=== PATIENT | female | born 2000 | race Caucasian/White ===

== ENCOUNTER 2024-03-03 19:15 | Emergency (ER) | payer OTHER ==
[2024-03-03] MEDS: Ondansetron 4 MG Tab.DIS PO ONE (19:57)
[2024-03-03] MEDS: Acetaminophen 500 MG Tab PO ONE (19:57)
[2024-03-03 20:22] LABS: CORONAVIRUS COVID-19 NAA NEGATIVE (NEGATIVE); INFLUENZA A NAA NEGATIVE (NEGATIVE); INFLUENZA B NAA POSITIVE (NEGATIVE); RESPIRATORY SYNCYTIAL VIR NAA NEGATIVE (NEGATIVE)
== END 2024-03-03 21:13 | disposition home or self-care (01) ==
LOC: MW.ED 19:15
DX: O99.513 Diseases of the respiratory system complicating pregnancy, third trimester (principal); J10.1 Influenza due to other identified influenza virus with other respiratory manifestations; Z3A.00 Weeks of gestation of pregnancy not specified
CPT/HCPCS: 0241U; 99283; A9270

== ENCOUNTER 2024-03-06 11:12 | Emergency (ER) | payer OTHER ==
[2024-03-06] MEDS: Sodium Chloride 0.9% 1,000 ML IV ONE (12:20)
== END 2024-03-06 13:30 | disposition home or self-care (01) ==
LOC: MW.ED 11:12
DX: O99.511 Diseases of the respiratory system complicating pregnancy, first trimester (principal); J11.1 Influenza due to unidentified influenza virus with other respiratory manifestations; Z3A.00 Weeks of gestation of pregnancy not specified; Z79.899 Other long term (current) drug therapy
CPT/HCPCS: 96360; 99285; J7030

== ENCOUNTER 2024-09-08 01:35 | Inpatient (IN) | payer SELFPAY ==
[2024-09-08] MEDS: Lactated Ringers 1,000 ML IV SCH (02:25)
[2024-09-08] MEDS ORDERED: Misoprostol 200 MCG Tab PO PRN (02:28)
[2024-09-08] MEDS ORDERED: Butorphanol 2 MG/ML SDV IVPUSH PRN (02:28)
[2024-09-08] MEDS ORDERED: Sodium Chloride 0.9% 2.5 ML Syringe FLUSH PRN (02:28)
[2024-09-08] MEDS ORDERED: Water For Irrigation,Sterile 1,000 ML Container IRR PRN (02:28)
[2024-09-08] MEDS ORDERED: Lidocaine 1% 50 ML MDV INJECT PRN (02:28)
[2024-09-08] MEDS ORDERED: Ondansetron 4 MG/2 ML SDV IVPUSH PRN (02:28)
[2024-09-08] MEDS ORDERED: Sodium Chloride 0.9% 20 ML SDV IV PRN (02:28)
[2024-09-08] MEDS ORDERED: Carboprost Tromethamine 250 MCG/1 mL Vial IM PRN (02:28)
[2024-09-08] MEDS ORDERED: Methylergonovine 0.2 MG/1 ML Amp IM PRN (02:28)
[2024-09-08] MEDS ORDERED: Sodium Chloride 0.9% 10 ML Syringe FLUSH PRN (02:28)
[2024-09-08 02:36] LABS: HEMATOCRIT 40.7 % (37.0-47.0); HEMOGLOBIN 13.8 g/dL (12.0-16.0); MEAN CORPUSCULAR HEMOGLOBIN 29.4 pg (28.0-32.0); MEAN CORPUSCULAR HGB CONC 33.9 g/dL (32.0-36.0); MEAN CORPUSCULAR VOLUME 86.8 fL (83.0-99.0); MEAN PLATELET VOLUME 10.3 fL (9.4-12.3); PLATELET COUNT,PLT 200 K/uL (150-400); RED BLOOD CELL COUNT 4.69 M/uL (4.10-5.30); WHITE BLOOD CELL COUNT,WBC 11.73 K/uL (3.9-11.3)
[2024-09-08] MEDS: Ropivacaine HCl/PF 400 MG in Premix Bag 1 BAG EPIDUR SCH (03:32)
[2024-09-08] MEDS ORDERED: Phenylephrine HCl In 0.9% NaCl 1 MG/10 ML Syringe IVPUSH PRN (03:43)
[2024-09-08] MEDS ORDERED: ePHEDrine 50 MG/ML SDV IVPUSH PRN (03:43)
[2024-09-08] MEDS ORDERED: dexmedeTOMIDine HCl 200 MCG/2 ML SDV EPIDUR SCH (03:45)
[2024-09-08] MEDS: Oxytocin/0.9 % Sodium Chloride 30 UNIT/500 ML BAG IV SCH (07:13)
[2024-09-08] MEDS ORDERED: Acetaminophen 500 MG Tab PO PRN (07:24)
[2024-09-08] MEDS ORDERED: Docusate Sodium 100 MG Cap PO PRN (07:24)
[2024-09-08] MEDS ORDERED: oxyCODONE 5 MG Tab PO PRN (07:24)
[2024-09-08 07:39] LABS: PH,UMBILICAL ARTERIAL 7.193 (7.18-7.38); PH,UMBILICAL VENOUS 7.279 (7.25-7.45)
[2024-09-08] MEDS: Witch Hazel Medicated Pads 40/Jar TOP PRN (11:41)
[2024-09-08] MEDS: Benzocaine/Menthol 20%-0.5% Spray 78 GM Cannister TOP PRN (11:42)
[2024-09-08] MEDS: Phenylephrine HCl In 0.9% NaCl 1 MG/10 ML Syringe ONE (13:48)
[2024-09-08] MEDS: dexmedeTOMIDine HCl 200 MCG/2 ML SDV ONE (13:49)
[2024-09-08] MEDS: Ropivacaine HCl/PF 200 ML ONE (13:49)
[2024-09-08] MEDS: Ibuprofen 800 MG Tab PO PRN (14:55)
[2024-09-08] MEDS: Lanolin 100% Cream 7 GM Tube TOP PRN (14:55)
[2024-09-09 05:27] LABS: HEMATOCRIT 36.4 % (37.0-47.0); HEMOGLOBIN 12.2 g/dL (12.0-16.0)
== END 2024-09-09 11:34 | disposition home or self-care (01) | DRG 807 ==
LOC: MW.OBCHECK 01:35 → MW.OB 01:36 → MW.OBCHECK 02:28 → OBSVTOIN 07:11 → MW.OB 13:53
PROVIDERS: ADMIT Obstetrics & Gynecology; ATTEND Obstetrics & Gynecology
PROC: 10E0XZZ Delivery of Products of Conception, External Approach (ICD-10-PCS; principal; 2024-09-08)
DX: O42.02 Full-term premature rupture of membranes, onset of labor within 24 hours of rupture (principal); Z37.0 Single live birth; Z3A.39 39 weeks gestation of pregnancy; O77.0 Labor and delivery complicated by meconium in amniotic fluid
CPT/HCPCS: 36415; 51702; 59025; 59409; 82803; 84112; 85014; 85018; 85027; 86592; 86850; 86900; 86901; A9270-GY; J2371; J2590; J2795; J3490; J7120

== ENCOUNTER 2024-09-17 17:37 | Emergency (ER) | payer SELFPAY ==
[2024-09-17 18:51] LABS: BASOPHILS ABSOLUTE AUTO 0.04 K/uL (0.00-0.20); BASOPHILS PERCENT AUTO 0.2 % (0.0-1.0); EOSINOPHILS ABSOLUTE AUTO 0.05 K/uL (0.00-0.45); EOSINOPHILS PERCENT AUTO 0.3 % (0.0-6.0); HEMATOCRIT 43.7 % (37.0-47.0); HEMOGLOBIN 14.5 g/dL (12.0-16.0); IMMATURE GRAN ABSOLUTE AUTO 0.07 K/uL (0.00-0.05); IMMATURE GRAN PERCENT AUTO 0.4 % (0.0-0.4); LYMPHOCYTES ABSOLUTE AUTO 1.38 K/uL (1.00-4.80); MEAN CORPUSCULAR HEMOGLOBIN 29.2 pg (28.0-32.0); MEAN CORPUSCULAR HGB CONC 33.2 g/dL (32.0-36.0); MEAN CORPUSCULAR VOLUME 87.9 fL (83.0-99.0); MEAN PLATELET VOLUME 9.4 fL (9.4-12.3); MONOCYTES ABSOLUTE AUTO 0.63 K/uL (0.00-0.80); MONOCYTES PERCENT AUTO 3.6 % (0.0-8.0); NEUTROPHILS ABSOLUTE AUTO 15.15 K/uL (1.80-7.70); NEUTROPHILS PERCENT AUTO 87.5 % (41.0-71.0); PLATELET COUNT,PLT 299 K/uL (150-400); RED BLOOD CELL COUNT 4.97 M/uL (4.10-5.30); WHITE BLOOD CELL COUNT,WBC 17.32 K/uL (3.9-11.3)
[2024-09-17] MEDS: Acetaminophen 500 MG Tab PO STA (18:53)
[2024-09-17] MEDS: Sodium Chloride 0.9% 1,000 ML IV STA (18:53)
[2024-09-17] MEDS: Sodium Chloride 0.9% 10 ML Syringe FLUSH PRN (18:53)
[2024-09-17] MEDS: Sodium Chloride 0.9% 2.5 ML Syringe FLUSH PRN (18:53)
[2024-09-17] MEDS: Ampicillin/Sulbactam Na 3 GM in Sodium Chloride 0.9% 100 ML IV STA (18:53)
[2024-09-17 19:05] LABS: INR 0.99 (0.86-1.11)
[2024-09-17 19:14] LABS: A/G RATIO 0.6 (0.9-1.6); ALBUMIN 3.1 g/dL (3.4-5.0); BILIRUBIN TOTAL 0.2 mg/dL (0.2-1.0); CALCIUM 9.9 mg/dL (8.5-10.1); CARBON DIOXIDE,CO2 25.2 mmol/L (21.0-32.0); CREATININE 0.9 mg/dL (0.6-1.0); EST CRCL DRUG DOSING (CG) 95.55 mL/min; POTASSIUM,K 3.4 mmol/L (3.5-5.1)
[2024-09-17 19:34] LABS: BILIRUBIN,URINE NEGATIVE (NEGATIVE); COLOR,URINE YELLOW; GLUCOSE,URINE NEGATIVE (NEGATIVE); KETONES,URINE TRACE mg/dL (NEGATIVE); LEUKOCYTE ESTERASE,URINE TRACE (NEGATIVE); NITRITE,URINE NEGATIVE (NEGATIVE); OCCULT BLOOD,URINE MODERATE (NEGATIVE); PH,URINE 5.5 (5.0-8.0); PROTEIN,URINE NEGATIVE (NEGATIVE); UROBILINOGEN,URINE 0.2 EU/dL (<2.0)
[2024-09-17 19:35] LABS: APPEARANCE,URINE HAZY
[2024-09-17 19:40] LABS: LACTIC ACID 1.8 mmol/L (0.4-2.0)
[2024-09-17 19:43] LABS: BACTERIA,URINE FEW (NEGATIVE); EPITHELIAL CELLS,URINE RARE (NONE-FEW); RBC,URINE 0-2 (0-2/HPF)
[2024-09-17 20:12] LABS: CORONAVIRUS COVID-19 NAA NEGATIVE (NEGATIVE); INFLUENZA A NAA NEGATIVE (NEGATIVE); INFLUENZA B NAA NEGATIVE (NEGATIVE); RESPIRATORY SYNCYTIAL VIR NAA NEGATIVE (NEGATIVE)
== END 2024-09-17 21:11 | disposition home or self-care (01) ==
LOC: MW.ED 17:37
DX: O86.22 Infection of bladder following delivery (principal); N30.00 Acute cystitis without hematuria; Z75.8 Other problems related to medical facilities and other health care
CPT/HCPCS: 0241U; 36415; 80053; 81001; 83605; 85025; 85610; 87040; 87086; 96361; 96365; 99283; A9270; J0295; J3490; J7030

== ENCOUNTER 2024-09-18 17:38 | Emergency (ER) | payer SELFPAY ==
[2024-09-18] MEDS: Loratadine 10 MG Tab PO ONE (20:06)
== END 2024-09-18 20:10 | disposition home or self-care (01) ==
LOC: MW.ED 17:38
DX: O99.73 Diseases of the skin and subcutaneous tissue complicating the puerperium (principal); L50.9 Urticaria, unspecified; Z79.2 Long term (current) use of antibiotics; Z79.899 Other long term (current) drug therapy
CPT/HCPCS: 99282; A9270